=== PATIENT | female | born 1975 | race Caucasian/White ===

== ENCOUNTER → 2019-07-20 | Outpatient (CLI) | payer BC ==
[~2019-07-20] MED LIST: FLONASE 0.05%50 MCG NASAL; XANAX 0.25 MG0.25 MG PO
== END ==
LOC: RAD 10:44
DX: Z12.31 Encounter for screening mammogram for malignant neoplasm of breast (principal); Z13.6 Encounter for screening for cardiovascular disorders; E78.00 Pure hypercholesterolemia, unspecified; I25.10 Atherosclerotic heart disease of native coronary artery without angina pectoris

== ENCOUNTER → 2019-08-05 | Outpatient (CLI) | payer BC, OTHER | LOC: ULTRA 09:11 | DX: N60.01 Solitary cyst of right breast (principal); N60.02 Solitary cyst of left breast ==